=== PATIENT | female | born 1975 | race Caucasian/White ===

== ENCOUNTER 2017-02-06 14:09 | Emergency (ER) | payer OTHER ==
[~2017-02-06] VITALS: Ht 162.6 cm; Wt 63.5 kg
[~2017-02-06 14:09] MED LIST: CEPH500C3 PO; CIPR-9 PO; PHEN0.4T PO
[2017-02-06 14:25] VITALS: BP 130/71; PULSE 120; RESP 18; TEMP 98.7; O2SAT 96
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
[2017-02-06] MEDS ORDERED: LORazepam 2 MG/ML VIAL IM ONE (14:45)
[2017-02-06] MEDS ORDERED: HALOPERIDOL LACTATE 5 MG/ML AMP IM ONE (14:45)
[2017-02-06 15:30] LABS: AUTOMATED NEUTROPHIL # 7.4 TH/MM3 (1.8-7.7); BASOPHIL % 0.3 % (0.0-2.0); EOSINOPHIL % 0.3 % (0.0-4.0); HEMATOCRIT 37.1 % (35.0-46.0); HEMO FLAGS DIFF FINAL; LYMPH % 34.3 % (9.0-44.0); LYMPHOCYTE # 4.3 TH/MM3 (1.0-4.8); MEAN CELL VOLUME 85.4 FL (80.0-100.0); MEAN CORPUSCULAR HEMOGLOBIN 28.9 PG (27.0-34.0); MEAN CORPUSCULAR HGB CONC 33.9 % (32.0-36.0); MONO % 6.6 % (0.0-8.0); NEUT % 58.5 % (16.0-70.0); PLATELET COUNT 357 TH/MM3 (150-450); RED BLOOD COUNT 4.34 MIL/MM3 (4.00-5.30); RED CELL DISTRIBUTION WIDTH 13.3 % (11.6-17.2); WHITE BLOOD COUNT 12.7 TH/MM3 (4.0-11.0)
[2017-02-06 15:58] LABS: ANION GAP 13 MEQ/L (5-15); AST (GOT) 38 U/L (15-37); BICARBONATE 21.8 MEQ/L (21.0-32.0); BLOOD UREA NITROGEN 21 MG/DL (7-18); CHLORIDE 104 MEQ/L (98-107); GLOMERULAR FILTRATION RATE 63 ML/MIN (>89); POTASSIUM 3.7 MEQ/L (3.5-5.1); SODIUM (NA) 139 MEQ/L (136-145)
[2017-02-06 16:03] LABS: ALKALINE PHOSPHATASE 62 U/L (45-117); ALT (GPT) 73 U/L (10-53); BETA HCG QUANT LESS THAN 1 MIU/ML (0-5); TOTAL BILIRUBIN ADULT 0.9 MG/DL (0.2-1.0)
[2017-02-06 18:27] VITALS: BP 102/56; PULSE 99; RESP 18; O2SAT 100
[2017-02-06 22:36] VITALS: BP 89/53; PULSE 77; RESP 18; O2SAT 98
[2017-02-06 22:41] LABS: AMPHETAMINE, URINE POS (NEG); BARBITURATES, URINE NEG (NEG); COCAINE, URINE NEG (NEG)
[2017-02-07 03:44] VITALS: BP 103/53; PULSE 65; RESP 18; O2SAT 98
[2017-02-07 06:53] VITALS: BP 124/72; PULSE 55; RESP 18; O2SAT 98
[2017-02-07 10:00] VITALS: BP 116/62; PULSE 81; RESP 18
[2017-02-07 14:18] VITALS: BP 111/63; PULSE 87; RESP 18; O2SAT 97
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
== END 2017-02-07 15:34 | disposition home or self-care (01) ==
LOC: NEPC 14:09 → NEPJ 02-07 15:34
DX: F15.94 Other stimulant use, unspecified with stimulant-induced mood disorder (principal); F17.210 Nicotine dependence, cigarettes, uncomplicated
CPT/HCPCS: 80053; 80307; 84702; 85025; 96372; 99284; J1630; J2060

== ENCOUNTER 2017-08-04 15:30 | Emergency (ER) | payer SELFPAY ==
[~2017-08-04] VITALS: Ht 162.6 cm; Wt 64.0 kg
[2017-08-04 15:32] VITALS: BP 138/88; PULSE 94; TEMP 99.5; O2SAT 98
[2017-08-04] MEDS ORDERED: SODIUM CHLOR 0.9% 1000 ML INJ 1,000 ML IV ONE (16:42)
[2017-08-04] MEDS ORDERED: ONDANSETRON HCL 4 MG/2 ML VIAL IVP ONE (16:45)
[2017-08-04] MEDS ORDERED: MECLIZINE HCL 25 MG TAB PO ONE (16:45)
[2017-08-04] MEDS ORDERED: SODIUM CHLORIDE 0.9% FLUSH 10 ML FLUSH IVF PRN (16:45)
--- NOTE | 2017-08-04 16:46 | PD ---
HPI Chief Complaint: Dizziness Time Seen by Provider: 16:35 Travel History International Travel<30 days: No Contact w/Intl Traveler<30days: No Traveled to known affect area: No History of Present Illness HPI This is a 42-year-old female who presents with her friend for evaluation of dizziness. Symptoms started 2.5 weeks ago. She describes it as a room spinning sensation which is worse with sudden movements. She endorses an occasional "ear popping" sensation as well. She denies headache, blurred vision , nausea or vomiting, chest pain or shortness of breath, palpitations, abdominal pain, recent illness. She does endorse nasal congestion since yesterday. She denies any drug or alcohol use. She has never had this problem before. She is otherwise healthy, denies any significant past medical history. She has no other complaints at this time. PFS Past Medical History Anxiety: Yes Diminished Hearing: No ?: Not LMP: LAST WEEK : 2 Para: 2 Social History Alcohol Use: No (PT DENIES) Tobacco Use: Yes (1/2 PPD) Substance Use: Yes Allergies-Medications (Allergen,Severity, Reaction): Coded Allergies: penicillin G (Unverified Allergy, Unknown, RASH, 07/13/17) Reported Meds & Prescriptions Reported Meds & Active Scripts Active Zofran (Ondansetron HCl) 4 Mg Tab 4 Mg PO Q6HR PRN Meclizine (Meclizine HCl) 25 Mg Tab 25 Mg PO TID PRN Review of Systems Except as stated in HPI: all other systems reviewed are Neg Physical Exam Narrative GENERAL: Well-nourished female in no acute distress sitting upright in hospital bed vital signs reviewed SKIN: Warm and dry. HEAD: Atraumatic. Normocephalic. EYES: Pupils equal and round reactive to light extraocular muscles are intact. No scleral icterus. No injection or drainage. ENT: No nasal bleeding or discharge. Mucous membranes pink and moist. NECK: Trachea midline. No JVD. CARDIOVASCULAR: Regular rate and rhythm. No murmur appreciated. RESPIRATORY: No accessory muscle use. Clear to auscultation. Breath sounds equal bilaterally. GASTROINTESTINAL: Abdomen soft, non-tender, nondistended. Hepatic and splenic margins not palpable. MUSCULOSKELETAL: No obvious deformities. No edema. NEUROLOGICAL: Awake and alert. No obvious cranial nerve deficits. Motor grossly within normal limits. Normal speech. No nystagmus. Normal gait. Normal finger to nose. Symptoms reproduced when lying down suddenly or sitting up suddenly. PSYCHIATRIC: Appropriate mood and affect; insight and judgment normal. Data Data Last Documented VS Vital Signs Date Time Temp Pulse Resp B/P (MAP) Pulse Ox O2 Delivery O2 Flow Rate FiO2 08/04/17 17:03 100 Room Air 08/04/17 15:32 99.5 94 Orders Orders Electrocardiogram (08/04/17 16:42) Ed Urine Pregnancytest Poc (08/04/17 16:42) Complete Blood Count With Diff (08/04/17 16:42) Comprehensive Metabolic Panel (08/04/17 16:42) Magnesium (Mg) (08/04/17 16:42) Ct Brain W/O Iv Contrast(Rout) (08/04/17 16:42) Ecg Monitoring (08/04/17 16:42) Iv Access Insert/Monitor (08/04/17 16:42) Oximetry (08/04/17 16:42) Meclizine (Antivert) (08/04/17 16:45) Ondansetron Inj (Zofran Inj) (08/04/17 16:45) Sodium Chloride 0.9% Flush (Ns Flush) (08/04/17 16:45) Sodium Chlor 0.9% 1000 Ml Inj (Ns 1000 M (08/04/17 16:42) Potassium Chloride (Kcl) (08/04/17 18:30) Labs Laboratory Tests Test 08/04/17 17:00 White Blood Count 7.7 TH/MM3 Red Blood Count 4.28 MIL/MM3 Hemoglobin 12.6 GM/DL Hematocrit 37.9 % Mean Corpuscular Volume 88.4 FL Mean Corpuscular Hemoglobin 29.4 PG Mean Corpuscular Hemoglobin Concent 33.2 % Red Cell Distribution Width 13.8 % Platelet Count 323 TH/MM3 Mean Platelet Volume 7.0 FL Neutrophils (%) (Auto) 49.2 % Lymphocytes (%) (Auto) 42.4 % Monocytes (%) (Auto) 7.5 % Eosinophils (%) (Auto) 0.6 % Basophils (%) (Auto) 0.3 % Neutrophils # (Auto) 3.8 TH/MM3 Lymphocytes # (Auto) 3.3 TH/MM3 Monocytes # (Auto) 0.6 TH/MM3 Eosinophils # (Auto) 0.0 TH/MM3 Basophils # (Auto) 0.0 TH/MM3 CBC Comment DIFF FINAL Differential Comment Blood Urea Nitrogen 5 MG/DL Creatinine 0.58 MG/DL Random Glucose 60 MG/DL Total Protein 7.9 GM/DL Albumin 3.7 GM/DL Calcium Level 8.4 MG/DL Magnesium Level 2.1 MG/DL Alkaline Phosphatase 67 U/L Aspartate Amino Transf (AST/SGOT) 67 U/L Alanine Aminotransferase (ALT/SGPT) 116 U/L Total Bilirubin 0.3 MG/DL Sodium Level 140 MEQ/L Potassium Level 3.4 MEQ/L Chloride Level 106 MEQ/L Carbon Dioxide Level 29.0 MEQ/L Anion Gap 5 MEQ/L Estimat Glomerular Filtration Rate 115 ML/MIN [facility] Medical Decision Making Medical Screen Exam Complete: Yes Emergency Medical Condition: Yes Medical Record Reviewed: Yes Interpretation(s) CBC unremarkable CMP potassium 3.4, glucose 60, AST 67, ALT 116 Differential Diagnosis bppv, Mnire's, labyrinthitis, CVA, electrolyte imbalance, dehydration, orthostatic hypotension Narrative Course 42-year-old female 2.5 weeks of room spinning sensation which is reproducible some movements. Physical examination reveals no neurologic deficits. She has normal steady gait. Her symptoms are reproduced when she is lying down suddenly or sitting up suddenly. She has no nystagmus. Plan is for basic lab work, she'll placed on ECG monitoring pulse oximetry, 12-lead EKG will be obtained, she'll be given IV fluids, Zofran, meclizine. Lab work is been reviewed. Potassium slightly low at 3.4, she will be given oral potassium chloride. Glucose is 60, she'll be given Gatorade and lópez crackers and this will be reassessed. Her liver enzymes are mildly elevated which appear consistent with previous labs on record. The patient feels improved after the administration of these medications. Her CT imaging is negative. Stable for discharge. Diagnosis Primary Impression: Vertigo Additional Impression: Hypoglycemia Additional Instructions: Medication as needed. Follow-up with primary care. Return for any emergent medical conditions. Med/Other Pt SpecificInfo: Prescription(s) given Scripts Ondansetron (Zofran) 4 Mg Tab 4 MG PO Q6HR Y for NAUSEA OR VOMITING, #20 TAB 0 Refills Prov: Valerio,Shravanti R. MD 08/04/17 Meclizine (Meclizine) 25 Mg Tab 25 MG PO TID Y for VERTIGO, #20 TAB 0 Refills Prov: Yaya Luo MD 08/04/17 Disposition: 01 DISCHARGE HOME Condition: Stable Basilio Maddox Aug 04, 2017 16:46
[2017-08-04 17:03] VITALS: O2SAT 100
[2017-08-04 17:26] LABS: AUTOMATED NEUTROPHIL # 3.8 TH/MM3 (1.8-7.7); BASOPHIL % 0.3 % (0.0-2.0); EOSINOPHIL % 0.6 % (0.0-4.0); HEMATOCRIT 37.9 % (35.0-46.0); HEMO FLAGS DIFF FINAL; LYMPH % 42.4 % (9.0-44.0); LYMPHOCYTE # 3.3 TH/MM3 (1.0-4.8); MEAN CELL VOLUME 88.4 FL (80.0-100.0); MEAN CORPUSCULAR HEMOGLOBIN 29.4 PG (27.0-34.0); MEAN CORPUSCULAR HGB CONC 33.2 % (32.0-36.0); MONO % 7.5 % (0.0-8.0); NEUT % 49.2 % (16.0-70.0); PLATELET COUNT 323 TH/MM3 (150-450); RED BLOOD COUNT 4.28 MIL/MM3 (4.00-5.30); RED CELL DISTRIBUTION WIDTH 13.8 % (11.6-17.2); WHITE BLOOD COUNT 7.7 TH/MM3 (4.0-11.0)
[2017-08-04 17:42] LABS: ANION GAP 5 MEQ/L (5-15); AST (GOT) 67 U/L (15-37); BLOOD UREA NITROGEN 5 MG/DL (7-18); CHLORIDE 106 MEQ/L (98-107); GLOMERULAR FILTRATION RATE 115 ML/MIN (>89); MAGNESIUM 2.1 MG/DL (1.5-2.5); POTASSIUM 3.4 MEQ/L (3.5-5.1); SODIUM (NA) 140 MEQ/L (136-145)
[2017-08-04 17:43] LABS: ALT (GPT) 116 U/L (10-53)
[2017-08-04 17:46] LABS: ALKALINE PHOSPHATASE 67 U/L (45-117); TOTAL BILIRUBIN ADULT 0.3 MG/DL (0.2-1.0)
[2017-08-04] MEDS ORDERED: POTASSIUM CHLORIDE 20 MEQ CONTROLLED RELEASE TAB PO ONE (18:30)
--- NOTE | 2017-08-04 18:51 | RADRPT ---
EXAM DATE/TIME: 08/04/2017 18:37 [place] COMPARISON: CT BRAIN W/O CONTRAST, March 05, 2015, 20:47. INDICATIONS : Dizzy for two weeks. RADIATION DOSE: 31.94 CTDIvol (mGy) MEDICAL HISTORY : None SURGICAL HISTORY : None. ENCOUNTER: Initial ACUITY: 1 day PAIN SCALE: 0/10 LOCATION: cranial TECHNIQUE: Multiple contiguous axial images were obtained of the head. Using automated exposure control and adj ustment of the mA and/or kV according to patient size, radiation dose was kept as low as reasonably a chievable to obtain optimal diagnostic quality images. DICOM format image data is available electro nically for review and comparison. FINDINGS: CEREBRUM: The ventricles are normal for age. No evidence of midline shift, mass lesion, hemorrhage or acute in farction. No extra-axial fluid collections are seen. POSTERIOR FOSSA: The cerebellum and brainstem are intact. The 4th ventricle is midline. The cerebellopontine angle i s unremarkable. EXTRACRANIAL: The visualized portion of the orbits is intact. SKULL: The calvaria is intact. No evidence of skull fracture. CONCLUSION: Normal examination for a patient of this age. No significant change has occurred. Rodney Cain MD on August 04, 2017 at 18:48 Board Certified Radiologist. This report was verified electronically.
[2017-08-04] MEDS ORDERED: ZOFR4TAB PO (18:58)
[2017-08-04] MEDS ORDERED: MECL-62 PO (18:58)
--- NOTE | 2017-08-05 12:51 | EKG ---
Date Performed: 08/04/2017 Time Performed: 19:33:23 PTAGE: 42 years EKG: Sinus rhythm NORMAL ECG PREVIOUS TRACING : 03/05/2015 19.30 DOCTOR: Melvin Fabian Interpretating Date/Time 08/05/2017 12:46:21
== END 2017-08-04 19:15 | disposition home or self-care (01) ==
LOC: NEPD 15:30
DX: R42 Dizziness and giddiness (principal); E16.2 Hypoglycemia, unspecified; R09.81 Nasal congestion; F41.9 Anxiety disorder, unspecified; F17.200 Nicotine dependence, unspecified, uncomplicated; Z88.0 Allergy status to penicillin
CPT/HCPCS: 70450; 80053; 83735; 84703; 85025; 93005; 96374; 99285; J2405; J7030

== ENCOUNTER 2017-10-19 17:52 | Emergency (ER) | payer SELFPAY ==
[~2017-10-19] VITALS: Ht 162.6 cm; Wt 63.0 kg
[~2017-10-19 17:52] MED LIST changes: -CEPH500C3 PO; -CIPR-9 PO; +MECL-62 PO; -PHEN0.4T PO; +ZOFR4TAB PO
[2017-10-19 17:53] VITALS: BP 136/79; PULSE 94; RESP 20; TEMP 99.4; O2SAT 99
[2017-10-19 18:49] LABS: BACTERIA, URINE MANY /hpf; BLOOD, URINE TRACE (NEG); COMMENT (UR) CULTURE INDICATED; CULTURE IF INDICATED CULTURE INDICATED; GLUCOSE,URINE NEG (NEG); KETONE, URINE NEG (NEG); MUCUS URINE MOD /lpf (OCC); NITRITE,URINE POS (NEG); PH, URINE 5.5 (5.0-8.5); SQUAMOUS EPITHELIAL CELL URINE 19 /hpf (0-5); URINE COLOR YELLOW (YELLW/STRAW)
--- NOTE | 2017-10-19 18:56 | PD ---
HPI Chief Complaint: Complaint Time Seen by Provider: 18:42 Travel History International Travel<30 days: No Contact w/Intl Traveler<30days: No Traveled to known affect area: No History of Present Illness HPI 42-year-old female presents to the emergency room for evaluation of dysuria, urgency, and frequency for the past 6 days. She has been taking over-the- counter Azo without any relief in symptoms. She has associated urgency and frequency. Mild nausea without vomiting. Denies flank pain, fever, chills. She also complains of foul-smelling vaginal discharge for the same amount of time. Denies any abdominal or pelvic pain. Last menstrual cycle was September 08. She has not taken a test because her cycles are usually late. She denies any other chronic medical conditions or daily medications. [facility] Past Medical History Anxiety: Yes Diminished Hearing: No Tetanus Vaccination: < 5 Years ?: LMP: 08/2017 : 2 Para: 2 Past Surgical History Surgical History: No Previous Surgery Social History Alcohol Use: No (PT DENIES) Tobacco Use: Yes (1/2 PPD) Substance Use: Yes Allergies-Medications (Allergen,Severity, Reaction): Coded Allergies: penicillin G (Verified Allergy, Unknown, RASH, 10/19/17) Reported Meds & Prescriptions Reported Meds & Active Scripts Active Macrobid (Nitrofurantoin Monohydrate Macrocrystals) 100 Mg Capsule 100 Mg PO BID 7 Days Zofran (Ondansetron HCl) 4 Mg Tab 4 Mg PO Q6HR PRN Meclizine (Meclizine HCl) 25 Mg Tab 25 Mg PO TID PRN Review of Systems Except as stated in HPI: all other systems reviewed are Neg Physical Exam Narrative GENERAL: Well-nourished, well-developed male in no acute distress. Afebrile. Ambulatory. SKIN: Focused skin assessment warm/dry. HEAD: Normocephalic. EYES: No scleral icterus. No injection or drainage. NECK: Supple, trachea midline. No JVD or lymphadenopathy. CARDIOVASCULAR: Regular rate and rhythm without murmurs, gallops, or rubs. RESPIRATORY: Breath sounds equal bilaterally. No accessory muscle use. GASTROINTESTINAL: Abdomen soft, nondistended. No tenderness to palpation. GENITOURINARY: Examined in the presence of a nurse and with sterile gloves. Normal external genitalia without lesions or erythema. Vaginal vault without blood but with moderate white drainage. Cervical os not visualized. No cervical motion tenderness. Uterus nontender and nonenlarged. Bilateral adnexa nontender without masses. Data Data Last Documented VS Vital Signs Date Time Temp Pulse Resp B/P (MAP) Pulse Ox O2 Delivery O2 Flow Rate FiO2 10/19/17 17:53 99.4 94 20 136/79 (98) 99 Room Air Orders Orders Urinalysis - C+S If Indicated (10/19/17 18:27) Ed Urine Pregnancytest Poc (10/19/17 18:27) Urine Culture (10/19/17 18:20) Gc And Chlamydia Pcr (10/19/17 19:12) Wet Prep Profile (10/19/17 19:12) Labs Laboratory Tests Test 10/19/17 18:20 10/19/17 19:00 Urine Color YELLOW Urine Turbidity HAZY Urine pH 5.5 Urine Specific [place] 1.020 Urine Protein TRACE mg/dL Urine Glucose (UA) NEG mg/dL Urine Ketones NEG mg/dL Urine Occult Blood TRACE Urine Nitrite POS Urine Bilirubin NEG Urine Urobilinogen LESS THAN 2.0 MG/DL Urine Leukocyte Esterase LARGE Urine RBC 6 /hpf Urine WBC 57 /hpf Urine Squamous Epithelial Cells 19 /hpf Urine Amorphous Sediment RARE Urine Bacteria MANY /hpf Urine Mucus MOD /lpf Microscopic Urinalysis Comment CULTURE INDICATED Clue Cells (Wet Prep) NONE SEEN Vaginal Trichomonas (Wet Prep) NONE SEEN Vaginal Yeast (Wet Prep) NONE SEEN MDM Medical Decision Making Medical Screen Exam Complete: Yes Emergency Medical Condition: Yes Medical Record Reviewed: Yes Differential Diagnosis Dysuria, urinary tract infection, nephrolithiasis Narrative Course 42-year-old female presents to the emergency room for evaluation of dysuria, urgency, frequency, and nausea for the past 6 days. She has also had vaginal discharge. Denies any nausea, vomiting, diarrhea, abdominal pain, flank pain, cramping, or vaginal bleeding. Vital signs stable. Urine is positive; patient was made aware. Pelvic exam was performed with sterile gloves. Shows moderate drainage but no bleeding in the vaginal vault. No CMT or adnexal tenderness. UA is indicative of urinary tract infection. Wet prep is negative. GC and chlamydia ordered and pending. Patient will be discharged with prescription for Macrobid and told to follow up with her OB or return for worsening symptoms. Diagnosis Primary Impression: Urinary tract infection during Qualified Codes: O23.41 - Unspecified infection of urinary tract in , first trimester Additional Impression: Qualified Codes: Z3A.01 - Less than 8 weeks gestation of Referrals: [employer] Additional Instructions: Rest and drink plenty of fluids. Take Macrobid as directed, until gone. Follow-up with an media marketing director. Return to the emergency room for worsening symptoms. Med/Other Pt SpecificInfo: Prescription(s) given Scripts Nitrofurantoin Monohydrate Macrocrystals (Macrobid) 100 Mg Capsule 100 MG PO BID for Infection for 7 Days, #14 CAP 0 Refills Prov: Bib Nicholson MD 10/19/17 Disposition: 01 DISCHARGE HOME Condition: Stable Evelyn Boston Oct 19, 2017 18:56
[2017-10-19] MEDS ORDERED: MACR100C2 PO (20:01)
[2017-10-19 21:38] LABS: CHLAMYDIA PCR NOT DETECTED (NOT DETECT); NEISSERIA PCR NOT DETECTED (NOT DETECT)
== END 2017-10-19 20:30 | disposition home or self-care (01) ==
LOC: NEPD 17:52
DX: O23.41 Unspecified infection of urinary tract in pregnancy, first trimester (principal); N89.8 Other specified noninflammatory disorders of vagina; B96.20 Unspecified Escherichia coli [E. coli] as the cause of diseases classified elsewhere; O99.341 Other mental disorders complicating pregnancy, first trimester; F41.9 Anxiety disorder, unspecified; O99.331 Smoking (tobacco) complicating pregnancy, first trimester; Z3A.01 Less than 8 weeks gestation of pregnancy; Z79.899 Other long term (current) drug therapy; Z88.0 Allergy status to penicillin
CPT/HCPCS: 81001; 84703; 87077; 87086; 87186; 87210; 87491; 87591; 99284